=== PATIENT | male | born 1955 | race Asian ===

== ENCOUNTER 2018-08-18 10:52 | Day surgery (SDC) | payer MEDICARE, MEDICAID ==
[~2018-08-18] VITALS: Ht 167.6 cm; Wt 61.4 kg
[2018-08-18 11:51] VITALS: Ht 167.6 cm; Wt 61.4 kg
[2018-08-18 12:24] VITALS: BP 182/84; PULSE 58; RESP 16
[2018-08-18] MEDS ORDERED: NIFEDIPINE (12:31)
[2018-08-18] MEDS ORDERED: BENA40TA56 PO (12:31)
[2018-08-18] MEDS ORDERED: PANT40TA4 PO (12:31)
[2018-08-18] MEDS ORDERED: GABA100C14 PO (12:31)
[2018-08-18] MEDS ORDERED: HYDR-3672 PO (12:31)
[2018-08-18] MEDS ORDERED: FURO40TA4 PO (12:31)
[2018-08-18] MEDS ORDERED: ATEN-51 PO (12:31)
[2018-08-18] MEDS ORDERED: CLOP75TA27 PO (12:31)
[2018-08-18] MEDS ORDERED: DUCOSATE SODIUM (12:31)
[2018-08-18] MEDS ORDERED: TRAZ-111 PO (12:31)
--- NOTE | 2018-08-18 13:11 | PREAC ---
Date/Time of Note Date/Time of Note DATE: 08/18/18 TIME: 13:09 Anesthesia Eval and Record Evaluation Time Pre-Procedure Interview DATE: 08/18/18 TIME: 13:09 Age 62 Sex male NPO: 8 hrs Preoperative diagnosis Abdominal Pain, Hemorrhoids, Anemia Planned procedure EGD Past Medical History Past Medical History: Includes Cardio: HTN, Dyslipidemia Endo: Diabetes Renal: ESRD on dialysis (Last Dialysis on Saturday) GI: GERD Heme: Anemia Surgery & Anesthesia Issues No known issue Meds Anticoagulation: No Beta [place] within 24 hr: Yes Reported Medications Trazodone Hcl* (Trazodone Hcl*) 50 Mg Tablet, 50 MG PO QHS, #30 TAB 08/18/18 Pantoprazole* (Pantoprazole*) 40 Mg Tablet.dr, 40 MG PO DAILY, TAB 08/18/18 [Nifedipine 90] No Conflict Check 08/18/18 Hydralazine Hcl* (Hydralazine Hcl*) 50 Mg Tab, 50 MG PO TID, #90 TAB 08/18/18 Gabapentin* (Gabapentin*) 100 Mg Capsule, 100 MG PO TID, #90 CAP 08/18/18 Furosemide* (Furosemide*) 40 Mg Tablet, 40 MG PO DAILY, TAB 08/18/18 [Ducosate Sodium 100] No Conflict Check 08/18/18 Clopidogrel Bisulfate (Clopidogrel) 75 Mg Tablet, 75 MG PO DAILY, #30 TAB 08/18/18 Benazepril Hcl* (Benazepril Hcl*) 40 Mg Tablet, 40 MG PO DAILY, #30 TAB 08/18/18 Atenolol* (Atenolol*) 25 Mg Tablet, 25 MG PO DAILY, #30 TAB 08/18/18 Meds reviewed: Yes Allergies Coded Allergies: No Known Drug Allergies (Verified Allergy, Unknown, 08/18/18) Allergies Reviewed: Yes Labs/Studies Labs Reviewed: Reviewed by anesthesiologist test: N/A Studies: ECG (n/a), CXR (n/a) Pre-procedure Exam Last vitals Vital Signs Date Temp Pulse Resp B/P (MAP) Pulse Ox O2 O2 Flow FiO2 Time Delivery Rate 08/18/18 96.8 58 16 182/84 100 Room Air 12:24 (116) Airway: Adequate mouth opening, Adequate thyromental dist Mallampati: Mallampati II Teeth: Normal Lung: Normal Heart: Normal ASA Physical Status ASA physical status: 3 Emergency: None Planned Anesthetic General/MAC: MAC Planned Pain Management Parenteral pain med Pre-operative Attestations Prior to commencing anesthesia and surgery, the patient was re-evaluated, there was verification of: *The patient's identity *The results of appropriate recent lab work and preoperative vital signs *The above evaluation not changing prior to induction *Anesthetic plan, risk benefits, alternative and complications discussed with patient/family; questions answered; patient/family understands, accepts and wishes to proceed. EMILY SANZ MD Aug 18, 2018 13:11
[2018-08-18] MEDS ORDERED: PROPOFOL 20 ML ONE (13:27)
--- NOTE | 2018-08-18 13:30 | PAC ---
Date/Time of Note Date/Time of Note DATE: 08/18/18 TIME: 13:30 Post-Anesthesia Notes Post-Anesthesia Note Last documented vital signs Vital Signs Date Temp Pulse Resp B/P (MAP) Pulse Ox O2 O2 Flow FiO2 Time Delivery Rate 08/18/18 96.8 58 16 182/84 100 Room Air 13:34 (116) Activity: WNL Respiratory function: WNL Cardiovascular function: WNL Mental status: Baseline Pain reasonably controlled: Yes Hydration appropriate: Yes Nausea/Vomiting absent: Yes EMILY SANZ MD Aug 18, 2018 13:30
[2018-08-18 13:55] VITALS: BP 141/68; PULSE 58; RESP 10
== END 2018-08-18 16:20 | disposition home or self-care (01) ==
LOC: GIL 10:52
PROVIDERS: ATTEND Internal Medicine
DX: D50.0 Iron deficiency anemia secondary to blood loss (chronic) (principal); K29.00 Acute gastritis without bleeding; E78.5 Hyperlipidemia, unspecified; E11.9 Type 2 diabetes mellitus without complications; I12.0 Hypertensive chronic kidney disease with stage 5 chronic kidney disease or end stage renal disease; N18.6 End stage renal disease; Z99.2 Dependence on renal dialysis
CPT/HCPCS: 82962; 84132; 88305; 88312